=== PATIENT | male | born 1955 | race Caucasian/White ===

== ENCOUNTER → 2020-07-05 09:37 | Outpatient (CLI) | payer MEDICARE, OTHER, SELFPAY ==
[2020-07-05 11:02] LABS: COVID19 -Nasal RAPID Negative (Negative)
== END ==
PROVIDERS: Visit Provider Specialist
DX: Z01.812 Encounter for preprocedural laboratory examination (principal); Z20.828 Contact with and (suspected) exposure to other viral communicable diseases
CPT/HCPCS: 87635; 99211

== ENCOUNTER 2020-07-08 06:28 | Day surgery (SDC) | payer MEDICARE, OTHER, SELFPAY ==
[2020-07-05 08:20] VITALS: BMI 31.1
[2020-07-08] VITALS (10 sets, daily range): BP systolic 131–175; BP diastolic 71–93; PULSE 72–79; RESP 12–20; TEMP 36.4–36.8; O2SAT 93–97; BMI 30.5
[2020-07-08] MEDS: LACTATED RINGERS 1,000 ML 42 ML IV ×2 (07:30→08:49)
--- NOTE | 2020-07-08 07:32 | PM.PREOP ---
Pre-operative Note COVID-19 COVID-19 status: Negative Result date/Date tested (Pos, Neg/Pending): 07/05/20 Interval Note History & Physical reviewed/Exam performed by Physician: Yes Changes to H&P: No
[2020-07-08] MEDS: CLINDAMYCIN 900 MG/50 ML PIGGYBACK 50 MG IV (07:43)
--- NOTE | 2020-07-08 08:08 | SUR.OPER ---
Supine on padded OR bed, head on gel donut, arms secured on padded arm boards at <90 degrees abduction, legs uncrossed, safety belt at thigh.
[2020-07-08] MEDS: BUPIVACAINE 0.5% (PF) VIAL 30 ML INJ (08:17)
--- NOTE | 2020-07-08 09:46 | P.OP_ITS ---
Operative Date/Time/Diagnoses Date of procedure: 07/08/20 Time of procedure: 09:46 Pre-op diagnosis: Umbilical hernia reducible and right inguinal hernia reducible Post-op diagnosis: same (Very small defect at the umbilicus. No mesh used there. Large direct hernia at the groin.) Procedure & Clinicians Procedure: Primary repair of umbilical hernia. Repair of right inguinal hernia with plug and patch technique Same procedure as scheduled: Yes Indications: Symptomatic hernias Surgeon: Arsh Brown Click Yes if Unassisted: Yes Anesthesia Type: General Operative Notes Findings: See postop diagnosis Closure Type: primary Specimen(s): none sent Prosthetic devices, grafts, tissues, transplants, or devices: Mesh used in the groin Estimated Blood Loss (mL): 10 Blood products transfused: none Procedure in detail: The patient is placed supine on the operating room table and underwent general LMA anesthesia. He was prepped and draped in the usual fashion. Local anesthetic was infiltrated and a curvilinear incision made beneath the umbilicus. It was carried down level of fascia. The hernia sac was identified entered and preperitoneal fat within it was partially transected and partially reduced. The fascial edge was cleared and a single [id number] of 0 Ethibond suture was closed it used to close the defect. The opening was really too small to place any mesh under the hernia. The umbilicus was tacked down to the fascia. This was done using 3-0 Vicryl. The subcu was closed with 3-0 Vicryl and the skin was closed with a running 4-0 Vicryl subcuticular stitch. Attention was turned to the right groin. . A transverse incision was made overlying the right internal ring and carried down to the level of the external oblique. The external oblique was opened parallel with its fibers through the external ring. The cord structures were elevated. The cremaster was opened proximally and search made for an indirect sac. None was found but there was a large amount of fat adjacent to the cord structures that appeared to be in a sac-like structure but when I opened it it actually appeared to be a direct hernia. I reduced the fat and ligated this sac-like structure.. The floor was examined and was found to be somewhat weakened as well. A small plug was placed in the defect created by the preperitoneal fat and was tacked into place with interrupted Ethibond suture.. A patch was placed across the floor and tacked at the pubic tubercle, the posterior lamella of the anterior rectus sheath, the ilioinguinal ligament, and superior lateral to the cord. The opening was mod ified as necessary to prevent tight constriction of the cord. Sutures of 0 Ethibond were used to secure the mesh. The external oblique was closed with a running 3 0 Vicryl. The subcu was closed with interrupted 3 0 Vicryl. The skin was closed with a running 4 0 Vicryl subcuticular stitch and Steri-Strips. Steri-Strips were also applied to the umbilical repair. Dressing was applied, the patient was awakened, and the patient was taken to the recovery area in good condition. Complications: none Post-operative Condition: stable Disposition: PACU Plan for aftercare: Follow-up in the office
[2020-07-08] MEDS: OXYCODONE/ACETAMINOPHEN 5/325 TABLET 1 TAB PO (09:51)
--- NOTE | 2020-07-08 10:12 | SUR.PHASEII ---
pt arrived to phase II via stretcher. pt sitting up and talking to RN at bedside. Drsg's observed to be C/D/I. Pt rating pain 3/10 at this time and states pain is tolerable. Bed in lowest position and call light given to pt. pt awaiting arrival of spouse to be discharged to home.
== END 2020-07-08 10:33 | disposition home or self-care (01) ==
PROVIDERS: Referring Provider Specialist; Visit Provider Specialist
PROC: (CPT 49505; principal; 2020-07-08 07:45)
DX: K40.90 Unilateral inguinal hernia, without obstruction or gangrene, not specified as recurrent (principal); K42.9 Umbilical hernia without obstruction or gangrene
CPT/HCPCS: 49505; 49585; C1781; J0330; J1100; J2405; J2704; J3010

== ENCOUNTER → 2021-08-20 14:14 | Outpatient (CLI) | payer MEDICARE, OTHER, SELFPAY ==
[2021-08-20 15:23] LABS: COVID19 -Nasal RAPID Negative (Negative)
== END ==
PROVIDERS: PCP Nurse Practitioner Family; Visit Provider Surgery
DX: Z01.812 Encounter for preprocedural laboratory examination (principal); Z20.822 Contact with and (suspected) exposure to COVID-19
CPT/HCPCS: 87635; C9803

== ENCOUNTER 2021-08-21 12:11 | Day surgery (SDC) | payer MEDICARE, OTHER, SELFPAY ==
--- NOTE | 2021-08-21 | PATH_ITS ---
[facility] Accession Number: [id number] . 01 Material submitted: . gastrointestinal site - GASTRIC POLYP . 02 Diagnosis: Gastric Polyp: Superficial portions of gastric mucosa with features of foveolar hyperplasia / hyperplastic polyp. Focal chronic inflammation is present. Negative for Helicobacter organisms by immunohistochemistry. Negative for dysplasia or malignancy. V 08/26/2021 1633 Local . 02 Electronically signed: . Alexandra Fernandez MD, Pathologist NPI- [id number] . 01 Gross description: . GASTRIC POLYP: Received in formalin are 2 fragment(s) of ospina, soft tissue measuring 0.2 x 0.1 x 0.1 cm to 0.1 x 0.1 x 0.1 cm submitted entirely in 1 cassette(s) /[facility] 08/22/2021 1232 Local . 02 Microscopic: . An immunohistochemical stain was performed to evaluate for Helicobacter organisms and is negative for Helicobacter organisms by immunohistochemical studies. The control stain showed appropriate reactivity. . . * This test was developed and its performance characteristics determined by [facility]. It has not been cleared or approved by the U.S. Food and Drug Administration. The FDA has determined that such clearance or approval is not necessary. This test is used for clinical purposes. It should not be regarded as investigational or for research. . 02 Pathologist provided ICD-10: K31.7, D13.1 . 02 CPT . 659824, H12003 Performed at: 01 [facility] Cyt[facility] [address] [facility], [place], [place] [id number] MD Jeff Arreola MD Phone: [phone] Performed at: 02 [facility] [id number] [place] [id number] Ortega MD Phone: [phone]
[2021-08-21 12:32] VITALS: BP 163/89; PULSE 85; RESP 16; TEMP 36.4; O2SAT 97
--- NOTE | 2021-08-21 13:06 | PM.HP.1 ---
History of Present Illness History of Present Illness Date Patient Seen: 08/21/21 Time Patient Seen: 13:06 Chief complaint: EGD & COLONOSCOPY Narrative: 66-year-old man here for esophagoduodenoscopy and colonoscopy. History of gastroesophageal reflux which had been previously controlled with omeprazole 20 mg daily. He is having worsening of his reflux symptoms primarily dyspepsia and was therefore referred for EGD. No personal or family history of intestinal malignancy. No blood per rectum hematemesis unintentional weight loss. Patient History Medical History (Updated 08/21/21 @ 13:08 by Herman Garrett MD) Acid reflux Elevated cholesterol HTN (hypertension) Surgical History History of vasectomy Family & Social History Social History: household members spouse Tobacco & Substance use: Tobacco type cigarettes Smoking Status Former smoker alcohol intake current alcohol intake frequency 0-2 drinks per day Substance Use Type does not use Meds Home Medications and Allergies Home Medications Medication Instructions Recorded Confirmed Type lisinopril 20 mg tablet 20 mg PO DAILY 06/19/20 08/21/21 History pravastatin 40 mg tablet 40 mg PO DAILY 06/19/20 08/21/21 History tamsulosin 0.4 mg capsule 0.4 mg PO DAILY 06/19/20 08/21/21 History omeprazole 20 mg tablet,delayed 20 mg PO DAILY 07/08/20 08/21/21 History release oxycodone-acetaminophen 5 mg-325 See Rx Instructions .ROUTE 07/08/20 08/21/21 Rx mg tablet (Percocet) .COMPLEX PRN #14 tab sodium,potassium,mag sulfates 17.5 See Rx Instructions PO .COMPLEX 08/14/21 Rx gram-3.13 gram-1.6 gram oral soln #354 ml (Suprep Bowel Prep Kit) Allergies Allergy/AdvReac Type Severity Reaction Status Date / Time Penicillins Allergy Unknown Verified 08/21/21 11:02 Exam Vital Signs (past 8 hours): - 08/21/21 12:32 Temperature 97.5 F L Pulse Rate 85 Respiratory Rate 16 Blood Pressure 163/89 H Pulse Oximetry 97 Oxygen Delivery Method Room Air Narrative Exam Narrative: GENERAL: Adult male in no apparent distress HEENT: No scleral icterus CV: Regular rate, no peripheral edema LUNGS: No increased work of breathing. Patient speaks in full sentences without oxygen support. ABDOMEN: Soft, non-tender, non-distended NEURO: Nonfocal, normal strength throughout, normal gait. SKIN: Warm and dry Assessment & Plan Assessment and plan (1) Acid reflux: Status: Acute (2) Screening for colon cancer: Status: Acute Assessment & Plan narrative: 66-year-old man with worsening gastroesophageal reflux who requires esophagoduodenoscopy and screening colonoscopy. Technical details of the procedure were discussed patient. Procedural risks including bleeding, missed diagnosis, perforation were discussed. His questions have been answered he is in agreement with this plan. Time Spent With Patient Critical Care time: I spent a total of [] minutes of critical care time on this patient's care today; this time is exclusive of procedural time.
[2021-08-21] MEDS: MIDAZOLAM 5 MG/5 ML VIAL IV (13:30)
[2021-08-21] MEDS: LIDOCAINE 4% SOLN 50 ML 20 ML TOP (13:46)
--- NOTE | 2021-08-21 13:46 | PM.OP.EC ---
Operative Date/Time/Diagnoses Date of procedure: 08/21/21 Time of procedure: 13:46 Pre-op diagnosis: Intractable GERD, screening colonoscopy Post-op diagnosis: same Procedure & Clinicians Study performed: Esophagoduodenoscopy colonoscopy Same procedure as scheduled: Yes Indications: Intractable GERD, screening colonoscopy Surgeon: Herman Garrett Procedure Notes Procedure in detail: Medications: Conscious sedation using 8mg IV midazolam and 150mcg IV of fentanyl The history and physical was performed/updated and the patient is ASA class is 2 . The procedure was discussed in detail with the patient. Potential risks complications including infection, bleeding, missed diagnosis, perforation, need for surgery, and were explained. Their questions were answered and informed consent was obtained. Patient placed in left lateral decubitus position. Time out was performed. Procedural sedation was administered with Versed and Fentanyl. A bite block was placed. the scope was inserted into the mouth and advanced through the esophagus and into the stomach. The stomach had mild gastritis and 2 small polyps at the cardia which were biopsied with the forceps. The pylorus was intubated and the duodenum was normal to the 2nd portion. The scope was retroflexed within the stomach and there was a small hiatal hernia. The scope was withdrawn into the esophagus the Z line was seen at 40 cm from the incisions. There was no Alcantar's esophagitis or masses or strictures. Stomach was desufflated and scope removed. Patient tolerated procedure well. Examination began with a thorough inspection of the perianal area there was no evidence of fissures, fistulae, external hemorrhoids or cutaneous malignancy. The colonoscopy scope was then placed into the anal canal and was advanced to the cecum, which was identified by the ileocecal valve, the appendiceal orifice and the confluence of the taenia. The scope was then slowly withdrawn examining colon thoroughly in all directions, irrigating it of any residual stool. FINDINGS 1. Gastric polyp 2. Ross diverticulosis 3. No colonic masses or polyps The patient tolerated the procedure well. They will be discharged once criteria are met. The prep was of good/excellent quality. The withdrawl time was 7 minutes. The sedation time was 27minutes. Specimen(s): other (Gastric polyp) Complications: none Impression: Gastritis Post-procedure Recommendations: Colonscopy in 10 years and Reflux diet Plan for aftercare: Increase omeprazole to 20 mg twice daily Disposition: same day surgery
[2021-08-21] MEDS: fentaNYL 250 MCG/5 ML INJ IV (13:47)
[2021-08-21 13:48] VITALS: BP 133/75; PULSE 70; RESP 15; TEMP 36.3; O2SAT 93
[2021-08-21 13:53] VITALS: BP 109/73; PULSE 72; RESP 15; O2SAT 95
[2021-08-21 13:57] VITALS: BP 121/74; PULSE 75; RESP 14; O2SAT 95
[2021-08-21] MEDS: LACTATED RINGERS 1,000 ML 200 ML IV (13:59)
[2021-08-21 14:02] VITALS: BP 131/77; PULSE 75; RESP 15; TEMP 36.2; O2SAT 95
== END 2021-08-21 14:20 | disposition home or self-care (01) ==
PROVIDERS: PCP Nurse Practitioner Family; Referring Provider Surgery; Visit Provider Surgery
PROC: 0DJ08ZZ Inspection of Upper Intestinal Tract, Via Natural or Artificial Opening Endoscopic (ICD-10-PCS; CPT 43235; principal; 2021-08-21 13:15)
PROC: 0DJD8ZZ Inspection of Lower Intestinal Tract, Via Natural or Artificial Opening Endoscopic (ICD-10-PCS; CPT 45378; 2021-08-21 13:15)
DX: Z12.11 Encounter for screening for malignant neoplasm of colon (principal); K21.9 Gastro-esophageal reflux disease without esophagitis; I10 Essential (primary) hypertension; E78.00 Pure hypercholesterolemia, unspecified; K57.30 Diverticulosis of large intestine without perforation or abscess without bleeding; K44.9 Diaphragmatic hernia without obstruction or gangrene; D13.1 Benign neoplasm of stomach
CPT/HCPCS: 43239; G0121; 99152; 99153; J2250; J3010

== ENCOUNTER → 2021-09-30 15:16 | Outpatient (CLI) | payer MEDICARE, OTHER, SELFPAY ==
[2021-09-30 16:26] LABS: COVID19 -Nasal RAPID Negative (Negative)
== END ==
PROVIDERS: PCP Nurse Practitioner Family; Visit Provider Family Medicine Sleep Medicine
DX: Z20.822 Contact with and (suspected) exposure to COVID-19 (principal)
CPT/HCPCS: 87635; C9803

== ENCOUNTER → 2021-10-01 15:05 | Outpatient (CLI) | payer MEDICARE, OTHER, SELFPAY ==
--- NOTE | 2021-10-01 | DI.NM.S_ITS ---
PROCEDURE: NM EXERCISE TREADMILL NON NUC COMPARISON: None. INDICATIONS: Other chest pain FINDINGS: The patient exercised for 6 minutes and 39 seconds reaching 99% of maximum predicted heart rate (7.5 METs, SHYAM +9%). Mildly hypertensive response to exercise (resting BP 130/80mmHg, max BP 210/102mmHg). No angina during the study. No diagnostic ST changes with exercise. IMPRESSION: Low risk, normal treadmill ECG only stress test with mildly reduced exercise tolerance. Mildly hypertensive response to exercise (resting BP 130/80mmHg, max BP 210/102mmHg). Dictated by: Prabhu Flores MD on 10/02/2021 at 16:59 Approved by: Prabhu Flores MD on 10/02/2021 at 17:02
--- NOTE | 2021-10-01 15:50 | PM.TREADMILL ---
Cardiac Stress Test Report Referral & Results Date Patient Seen: 10/01/21 Time Patient Seen: 15:50 Requesting provider: Aletha Davies Indication: Chest pain Rest ECG: Sinus rhythm Procedure Note: Standard Celestino protocol, 6:39, 7.5 METS Fair exercise capacity, SHYAM +9% Normal hemodynamic response to exercise No chest pain or anginal symptoms [address] depression in II, III, aVF Rare PVC Impression: Eqivocal exercise stress test Please note: Actual ECG tracings can be found in the PACS system.
== END ==
PROVIDERS: PCP Nurse Practitioner Family; Referring Provider Nurse Practitioner Family; Visit Provider Nurse Practitioner Family
DX: R07.89 Other chest pain (principal)
CPT/HCPCS: 93017

== ENCOUNTER → 2022-08-20 11:07 | Outpatient (CLI) | payer MEDICARE, OTHER, SELFPAY | PROVIDERS: PCP Nurse Practitioner Family; Visit Provider Urology | DX: R39.9 Unspecified symptoms and signs involving the genitourinary system (principal) | CPT/HCPCS: 87086 ==

== ENCOUNTER → 2022-08-20 11:42 | Outpatient (CLI) | payer MEDICARE, OTHER, SELFPAY ==
[2022-08-20 14:47] LABS: BUN Creatinine Ratio 15.4 (6-22); Blood Urea Nitrogen 14 mg/dL (9-20); Calcium 9.5 mg/dL (8.4-10.2); Carbon Dioxide 26 mmol/L (22-32); Chloride 101 mmol/L (98-107); Estimated Glomerular Filt Rate > 60 mL/min (>60); Glucose 114 mg/dL (80-110); HEMOLYSIS < 15 (0-50); Potassium 4.6 mmol/L (3.4-5.1); Sodium 139 mmol/L (137-145)
== END ==
PROVIDERS: PCP Nurse Practitioner Family; Referring Provider Urology; Visit Provider Urology
DX: R31.29 Other microscopic hematuria (principal); R39.9 Unspecified symptoms and signs involving the genitourinary system; R97.20 Elevated prostate specific antigen [PSA]; N40.1 Benign prostatic hyperplasia with lower urinary tract symptoms; R35.0 Frequency of micturition; R30.0 Dysuria; R39.15 Urgency of urination; R35.1 Nocturia; Z80.42 Family history of malignant neoplasm of prostate; Z87.891 Personal history of nicotine dependence
CPT/HCPCS: 36415; 51798; 80048; 81002; 87077; 87086; 87185; 87186; 99214

== ENCOUNTER → 2022-09-01 11:44 | Outpatient (CLI) | payer MEDICARE, OTHER, SELFPAY ==
--- NOTE | 2022-09-01 11:48 | DI.MRI.S_ITS ---
PROCEDURE: MR PELIS WO/W CON INDICATIONS: Elevated prostate specific antigen [PSA] hematuria TECHNIQUE: Coronal HASTE, axial T1 FSE with fat saturation, 3-plane nonbreath-hold T2 FSE. After the administration of contrast, dynamic axial, delayed axial and coronal VIBE or 2-D FLASH with fat saturation through the pelvis. Optional diffusion weighted imaging and ADC may be performed. COMPARISON: [facility], CT, CT IVP A/P W/WO, 09/01/2022, 12:45 FINDINGS: Image quality: Diffusion weighted and dynamic contrast enhanced images are diagnostic. Prostate: Gland size is 6.3 x 6.1 x 6 cm; ellipsoid gland volume is 120 mL. No significant foci of intrinsic T1 hyperintensity to suggest hemorrhage. Multiple BPH nodules. Median lobe hypertrophy. Lesion size(s): Lesion 1: 0.6 x 0.5 cm, (12/11) Lesion 2: 0.9 x 0.8 cm, (12/14). Lesion location(s) (sector): Lesion 1: Right mid gland transitional zone Lesion 2: Left apex transitional zone posterior aspect Lesion description: Lesion 1: Oval Lesion 2: Oval T2 weighted imaging (T2WI) morphology score: Lesion 1: 3 Lesion 2: 3 Diffusion weighted imaging (DWI) morphology score: Lesion 1: 4 Lesion 2: 3 Dynamic contrast enhancement (DCE): Lesion 1: Present Lesion 2: Absent Lesion PI-RADS score: Lesion 1: PI-RADS 3 Lesion 2: PI-RADS 3 Genitourinary system: Bladder wall thickness is normal. Distal ureters are non distended. Bowel and peritoneum: No pathologic free pelvic fluid. Inferior colon and small bowel loops are normal in caliber. Prominent stool in the rectum. Diverticulosis. Nodes and vessels: No pelvic or inguinal adenopathy by size criteria. Iliac vessels are normal in caliber. Small lymph node adjacent to the right urinary bladder measuring 0.6 cm, (12/12). Soft tissues: Small fat containing left inguinal hernia. Bones: Marrow demonstrates normal overall signal, without lesions to suggest metastases. IMPRESSION: 1. Marked prostatomegaly. Multiple BPH nodules. 2. PI-RADS 3 observations in the transitional zone as described above. 3. No enlarged lymph nodes. Dictated by: Suhkjinder Alvarez M.D. on 09/01/2022 at 15:17 Approved by: Sukhjinder Alvarez M.D. on 09/01/2022 at 15:32
--- NOTE | 2022-09-01 11:49 | DI.CT.S_ITS ---
PROCEDURE: CT IVP A/P W/WO INDICATIONS: Elevated prostate specific antigen [PSA] hematuria TECHNIQUE: Optional 5 mm thick noncontrast images acquired from the diaphragm to the symphysis pubis. After the administration of intravenous contrast, 5 mm thick images acquired from the diaphragm to the symphysis pubis after a 10-minute delay. 2 mm thick coronal and sagittal reformats were then performed of the kidneys and ureters. For radiation dose reduction, the following was used: automated exposure control, adjustment of mA and/or kV according to patient size. COMPARISON: [facility], MR, MR PELVIS WO/W CON, 09/01/2022, 11:56. FINDINGS: Image quality: Excellent. Lung bases: Lung bases are clear. Heart size is normal. Urinary system: Both kidneys are normal in size, without hydronephrosis or nephrolithiasis on pre-contrast images. No perinephric fat stranding. There is normal bilateral renal enhancement. Renal calyces appear normal in morphology when filled with contrast. Opacified portions of both ureters demonstrate normal caliber. Bladder wall mildly thickened. No calcified bladder stones. There is a small diverticulum arising from the right posterior superior bladder wall. Prostate is enlarged and demonstrates heterogeneous enhancement. There is a 2.5 x 1.9 cm hypoenhancing area in left prostate. Other solid organs: Liver is normal in size. There is hepatic steatosis. Multiple hypodensities in liver are most likely cysts. Gallbladder is normal. Biliary system is non dilated. Pancreas enhances normally. Spleen is normal in size and enhancement. There is a 1 cm right adrenal nodule which demonstrates CT density 9.1 HU, compatible with a small adrenal adenoma. Peritoneum and bowel: Bowel loops demonstrate normal wall thickness and caliber. Normal appendix. No free fluid or air. Nodes and vessels: No retroperitoneal or mesenteric adenopathy by size criteria. Aorta and inferior vena cava are normal in size. Abdominal wall: No ventral hernias. Pelvis: No pathologic free pelvic fluid. No inguinal adenopathy. There is a small fat containing left inguinal hernia. Bones: No suspicious bony lesions. No vertebral body compression fractures. Grade 1 anterolisthesis of L4 on L5. Moderate to severe degenerative changes in lumbar spine. IMPRESSION: 1. Enlarged prostate with heterogeneous enhancement. There is a 2.5 x 1.9 cm hypoenhancing nodule in the left side of the prostate. Please correlate with prostate MRI findings. 2. Bladder wall is mildly thickened. The finding may be secondary to chronic bladder outlet obstruction. 3. A small bladder diverticulum arising from the right bladder wall. 4. Hepatic steatosis. 5. Multiple hepatic hypodensities, most likely cysts. 6. A 1 cm right adrenal adenoma. Dictated by: Donald De Los Santos M.D. on 09/01/2022 at 20:29 Approved by: Donald De Los Santos M.D. on 09/02/2022 at 8:10
== END ==
PROVIDERS: PCP Nurse Practitioner Family; Referring Provider Urology; Visit Provider Urology
DX: N40.2 Nodular prostate without lower urinary tract symptoms (principal); R97.20 Elevated prostate specific antigen [PSA]; R31.29 Other microscopic hematuria; D35.01 Benign neoplasm of right adrenal gland; N32.3 Diverticulum of bladder; K76.0 Fatty (change of) liver, not elsewhere classified; K40.90 Unilateral inguinal hernia, without obstruction or gangrene, not specified as recurrent; Z80.42 Family history of malignant neoplasm of prostate; Z87.891 Personal history of nicotine dependence
CPT/HCPCS: 72197; 74178; A9579

== ENCOUNTER → 2022-10-23 10:17 | Outpatient (CLI) | payer MEDICARE, OTHER, SELFPAY | PROVIDERS: PCP Nurse Practitioner Family; Visit Provider Urology | DX: N40.1 Benign prostatic hyperplasia with lower urinary tract symptoms (principal); R35.0 Frequency of micturition; R82.81 Pyuria; R39.9 Unspecified symptoms and signs involving the genitourinary system | CPT/HCPCS: 76872; 81002; 87077; 87086; 87186 ==

== ENCOUNTER → 2023-12-31 14:57 | Outpatient (CLI) | payer MEDICARE, OTHER, SELFPAY ==
--- NOTE | 2023-12-31 15:00 | DI.US.S_ITS ---
PROCEDURE: US ABDOMEN LIMITED INDICATIONS: ABD PAIN / GALLBLADDER TECHNIQUE: Real-time scanning was performed of the abdominal and retroperitoneal organs, with image documentation. COMPARISON: [facility], CT, CT IVP A/P W/WO, 09/01/2022, 12:45. FINDINGS: Liver: Liver is normal in size and homogeneous in echotexture. There is increased hepatic echogenicity. Main portal vein is patent with hepatopetal fold. There are multiple simple cysts seen throughout the liver. There is a hyper echoic focus in the left liver measuring 1.3 x 1.5 by 1.5 cm. Nonvascular hypoechoic focus in the right hepatic lobe measuring 1.5 x 1.5 x 1.0 cm. Gallbladder: No gallstones. No wall thickening. No pericholecystic edema. Negative sonographic Xie's sign. Biliary ducts: Intrahepatic bile ducts are non-dilated. Extrahepatic bile duct caliber measures 5.2 mm. Normal is 6-7 mm or less in diameter, or 10 mm or less post-cholecystectomy. Pancreas: Visualized portions of the pancreas are sonographically normal. Pancreas tail is not well visualized secondary to overlying bowel gas. Right kidney: Right kidney is normal in size measuring 2.8 cm with cortical thickness of 1.1 cm. No nephrolithiasis or hydronephrosis. Ill-defined hypoechoic area in the interpolar region measuring approximately 2.0 x 2.2 x 3.0 cm. Miscellaneous: No free abdominal fluid. IMPRESSION: No cholelithiasis or sonographic evidence of acute cholecystitis. Increased hepatic echogenicity suggestive of hepatic steatosis. Correlate with LFTs. Left hepatic 1.5 cm echogenic focus may represent hemangioma. Indeterminate right hepatic 1.5 cm hypoechoic focus. Recommend further evaluation with contrast-enhanced CT or MRI liver protocol. Right renal 3.0 cm ill-defined hypoechoic area in the interpolar region. Finding may represent hypertrophied column of Grant. This area can be assessed on CT or MRI contrast enhanced liver protocol. Approved by: Ary Lomax M.D.,Ph.D. on 12/31/2023 at 18:03
--- NOTE | 2023-12-31 15:07 | DI.RAD.S_ITS ---
PROCEDURE: XR CHEST 1V INDICATIONS: DYSPNEA TECHNIQUE: One view of the chest was acquired. COMPARISON: None. FINDINGS: Surgical changes and devices: None. Lungs and pleura: Lungs are clear. No pleural effusions or pneumothorax. Mediastinum: Mediastinal contours appear normal. Heart size is normal. Bones and chest wall: No suspicious bony lesions. Overlying soft tissues appear unremarkable. IMPRESSION: No acute cardiopulmonary abnormality is seen. Approved by: Zack Gomez M.D. on 12/31/2023 at 18:25
== END ==
PROVIDERS: PCP Physician Assistant; Referring Provider Physician Assistant; Visit Provider Physician Assistant
DX: R06.00 Dyspnea, unspecified (principal); K76.89 Other specified diseases of liver; R10.9 Unspecified abdominal pain
CPT/HCPCS: 71045; 76705

== ENCOUNTER → 2024-01-10 09:57 | Outpatient (CLI) | payer MEDICARE, OTHER, SELFPAY ==
--- NOTE | 2024-01-10 | DI.ECHO.S_ITS ---
[facility] + [facility] : : [address] : [facility] : : [place], : : [place] [address] : : Phone: [phone] Echocardiogram Report + + :Name: NJ ALONZO Study Date: 01/10/2024 Height: 72 in : [id number] ReadingLocation: Weight: 203 lb : : Gender: Male BSA: 2.1 m2 : :: 1955 Age: 68 yrs BP: 136/77 mmHg: :Reason For Study: DYSPNEA : :Ordering Physician: ROBERT, : :BOBO Performed By: Otis Kilpatrick : :Referring: UNSPECIFIED : + + Interpretation Summary Normal left ventricle size with ejection fraction 60-65%. The left atrium is severely dilated. Moderate aortic regurgitation, eccentric jet. Mild to moderate mitral regurgitation. Mild tricuspid regurgitation. Procedure: A two-dimensional transthoracic echocardiogram with color flow and Doppler was performed. The study quality was technically adequate. There is no prior echocardiogram noted for this patient. The patient was in sinus rhythm with heart rates between 49-54 bpm during the exam. Left Ventricle: The left ventricle is normal in size and wall thickness. The ejection fraction is estimated to be 60-65%. There are no focal wall motion abnormalities. Diastolic function could not be accurately assessed due to confounding valvular disease. Right Ventricle: The right ventricle is normal in size and function. Atria: The left atrium is severely dilated. Right atrial size is normal. The interatrial septum grossly appears intact with no obvious evidence for an atrial septal defect. Mitral Valve: The mitral valve is grossly normal. There is no mitral valve stenosis. There is mild to moderate mitral regurgitation. Aortic Valve: The aortic valve is trileaflet. The aortic valve is slightly calcified. There is no aortic valve stenosis. There is moderate aortic regurgitation. Tricuspid Valve: The tricuspid valve is normal. There is no tricuspid stenosis. There is mild tricuspid regurgitation. The right ventricular systolic pressure is estimated to be at least 34 mmHg based on an estimated right atrial pressure of 3 mm Hg. Pulmonic Valve: The pulmonic valve is not well visualized. There is no pulmonic valvular stenosis. There is no pulmonic valvular regurgitation. Great Vessels: The aortic root is borderline dilated. The ascending aorta could not be visualized. The IVC is of normal diameter and collapses greater than 50% with a sniff. This suggests a low right atrial pressure of 3 mm Hg. Pericardium/ Pleura There is no pericardial effusion. There is no pleural effusion. MMode/2D Measurements & Calculations LVIDd: 5.7 cm LVOT diam: 2.4 cm LVIDs: 4.1 cm Ao root diam: 3.9 cm IVSd: 1.0 cm Ao Arch Diam (Prox Trans): 3.5 cm LVPWd: 1.2 [address] diameter/BSA (cm/m^2): 2.6 LV sys. diameter/BSA (cm/m^2): 1.9 FS: 28.1 % LA A2 area: 33.1 cm2 RA long axis: 5.8 cm LA A4 area: 30.1 cm2 RA area: 16.9 cm2 LA length (vol): 6.5 cm RA vol: 41.9 ml LA vol: 130.9 ml RA : 19.5 ml/m2 LA vol index: 61.0 ml/m2 RVD1 (basal): 3.4 cm IVC diam: 2.4 cm RVD2 (mid): 3.2 cm TAPSE: 2.6 cm Doppler Measurements & Calculations Ao V2 max: 204.9 cm/sec LVOT Max Edgar: 156.1 cm/sec Ao V2 mean: 155.6 cm/sec LV V1 max P.7 mmHg Ao V2 VTI: 54.5 cm LV V1 VTI: 43.2 cm Ao max P.8 mmHg Ao mean P.3 mmHg SAVANA(I,D): 3.6 cm2 AI P1/2t: 523.6 msec SAVANA(V,D): 3.4 cm2 AI dec slope: 252.5 cm/sec2 SAVANA indexed to BSA (cm^2/m^2): 1.7 sev ratio: 0.79 MV E max edgar: 88.1 cm/sec MV dec time: 0.21 sec MV A max edgar: 51.8 cm/sec MV E/A: 1.7 Med Peak E' Edgar: 5.7 cm/sec E/E' med: 15.3 Lat Peak E' Edgar: 9.4 cm/sec E/E' lat: 9.3 E/e' average: 12.3 TR max edgar: 278.2 cm/sec PA V2 max: 97.6 cm/sec TR max P.0 mmHg PA V2 mean: 71.3 cm/sec PA mean P.2 mmHg PA pr(Accel): 22.5 mmHg SV(LVOT): 195.6 ml Electronically signed by: Brodie Maurice on Reading Physician:01/10/2024 12:45 PM
== END ==
PROVIDERS: PCP Physician Assistant; Referring Provider Physician Assistant; Visit Provider Nurse Practitioner Family
DX: I08.3 Combined rheumatic disorders of mitral, aortic and tricuspid valves (principal); R06.09 Other forms of dyspnea
CPT/HCPCS: 93306

== ENCOUNTER → 2024-01-19 11:15 | Outpatient (CLI) | payer MEDICARE, OTHER, SELFPAY | PROVIDERS: PCP Physician Assistant; Referring Provider Nurse Practitioner Family; Visit Provider Physician Assistant | DX: R06.02 Shortness of breath (principal); Z87.891 Personal history of nicotine dependence; R06.00 Dyspnea, unspecified | CPT/HCPCS: 94060; 94726; 94729 ==